=== PATIENT | female | born 1970 | race Caucasian/White ===

== ENCOUNTER 2019-06-08 20:07 | Emergency (ER) | payer BC ==
[~2019-06-08] VITALS: Ht 157.5 cm; Wt 78.5 kg
[2019-06-08 20:19] VITALS: BP_SYST 156
--- NOTE | 2019-06-08 20:26 | NUR ---
Patient triaged and placed in waiting room. VSS and patient appears in no acute distress at this time. Accompanied by self, awaiting available bed, and MD notified of need for MSE.
--- NOTE | 2019-06-08 21:01 | NUR ---
Patient to ER bed 04 to gown for evaluation. Side rails up. Report given to Clint HOLT.
--- NOTE | 2019-06-08 21:06 | NUR ---
Pt AAOx4 ambulated into ED c/o discoloration to L hand, +tingling x 1 week with new onset pain radiating to L forearm. Pt denies taking medication for pain. Skin dry and warm, breathing even and unlabored. No other injuries/complaints per pt/noted. Will continue to monitor.
--- NOTE | 2019-06-08 21:31 | NUR ---
ER Dr. Hodge at bedside examining patient.
[2019-06-08 22:18] VITALS: BP_SYST 156
--- NOTE | 2019-06-08 22:18 | NUR ---
Patient given written and verbal discharge instructions and verbalizes understanding. ER MD Dr. Hodge discussed with patient the results and treatment provided. Patient in stable condition. ID arm band removed. Patient educated on pain management and to follow up with PMD 5-7 days. Pain Scale 0/10. Opportunity for questions provided and answered. Medication side effect fact sheet provided.
== END 2019-06-08 22:18 | disposition home or self-care (01) ==
LOC: SED 20:07
DX: I73.00 Raynaud's syndrome without gangrene (principal); Z88.0 Allergy status to penicillin; Z88.1 Allergy status to other antibiotic agents; Z88.8 Allergy status to other drugs, medicaments and biological substances
CPT/HCPCS: 99282